=== PATIENT | male | born 1985 | race Caucasian/White ===

== ENCOUNTER 2025-03-01 09:19 | Emergency (ER) | payer OTHER, SELFPAY ==
[2025-03-01 09:21] VITALS: BP 122/28
--- NOTE | 2025-03-01 09:21 | ED.GENMED ---
History of Present Illness
General
Chief Complaint: Abdominal Symptoms
Time Seen by Provider: 03/01/25 09:21
History of Present Illness
History of Present Illness:
FOCUSED PAST MEDICAL HISTORY
- Anxiety, bipolar
REVIEW OF OLD RECORDS
- No old records available for review
Note:
CHIEF COMPLAINT(S)
Concerns about findings from a body scanner during an intake process.
HISTORY OF PRESENT ILLNESS
The patient, a 39-year-old male, was undergoing an intake process which involved a body scan with an x-ray device. During this scan, a void the size of an acorn was reported in his abdomen. The patient denied knowledge of any foreign body in the
rectal area or elsewhere. He mentioned experiencing constipation, attributing it to the use of buprenorphine. The constipation adds difficulty to having a bowel movement, but he felt he could attempt one immediately.
I spoke to corrections officers at bedside
PHYSICAL EXAM
General: Alert, cooperative.
Skin: Warm, dry.
Head: Normocephalic, atraumatic.
Neck: Supple, trachea midline.
Eye, Ears, Nose, and Throat: Oral mucosa moist.
Cardiovascular: Normal peripheral perfusion, no edema.
Respiratory: Respirations are non-labored.
Gastrointestinal: Abdomen nondistended. Soft abdomen
Back: Normal range of motion, normal alignment.
Musculoskeletal: Normal ROM, normal strength.
Neurological: Alert and oriented to person, place, time, and situation, no focal neurological deficit observed.
Psychiatric: Cooperative, appropriate mood & affect.
PLAN
1. Obtain an abdominal x-ray to evaluate the cause of the void reported during the body scan.
2. Encourage the patient to have a bowel movement if possible, which may aid in resolving any potential obstruction shown on the previous scan.
DIFFERENTIAL DIAGNOSIS
The Differential Diagnosis includes, in no particular order and is not limited to:
1. Constipation due to medication (Buprenorphine).
2. Fecal impaction.
3. Intrabdominal foreign body.
4. Rectal mass or neoplasm.
5. Rectal abscess.
6. Diverticular disease.
7. Inguinal hernia.
8. Hemorrhoids.
9. Obstructive bowel syndrome.
10. Spinal misalignment affecting bowel passage.
RADIOLOGY
- X-ray of abdomen obtained
UPDATE
-SUMMARY OF ENCOUNTER
Patient was seen in the emergency department due to concerns raised by a body scanner which indicated a void the size of an acorn in the lower half of the body. An abdominal x-ray was obtained to evaluate for foreign objects, revealing no radiopaque
foreign body. The patient was asymptomatic, and vital signs were stable and unremarkable.
DISPOSITION
Transfer to police custody.
PLAN
No further emergency intervention required following negative radiological findings and stable vital signs.
INDEPENDENT REVIEW OF LABS AND INTERPRETATION OF TESTS
My independent interpretation of the abdominal x-ray shows no radiopaque foreign body present.
MEDICATION RECONCILIATION
None required based on current visit findings.
MEDICAL DECISION MAKING
-Complexity of Data Reviewed: Chronic conditions affecting care include constipation due to medication (Buprenorphine). Differential diagnosis included constipation due to medication, fecal impaction, intrabdominal foreign body, rectal mass or
neoplasm, rectal abscess, diverticular disease, inguinal hernia, hemorrhoids, obstructive bowel syndrome, spinal misalignment affecting bowel passage.
-Data:
Category 1
My independent interpretation of the abdominal x-ray shows no radiopaque foreign body present.
-Risk:
Consideration of Admission/Observation: Escalation of care including admission/observation was considered given the complexity and risk of the patients presenting complaint, exam findings, and/or their underlying comorbidities. However, ultimately I
feel the patient is safe for outpatient management with close follow-up. Reasoning: Work-up reassuring, does not reveal any acute life/organ threatening processes, patients symptoms well controlled upon reevaluation, reexamination is reassuring,
vitals are stable, patient agreeable with discharge, reliable for follow-up.
DIAGNOSIS
No foreign body detected in the abdominal region.
Phy Exam
Physical Exam
Physical Exam:
See HPI
Course
Orders/Labs/Results
Orders:
Orders
03/01/25 10:21
CR Abdomen - 1 View Urgent
Comment:
Reason For Exam: eval for FB; 'body scanner abnormal' at [facility] living
Vital Signs
Initial and Last Documented VS:
Initial Vital Signs
Temp Pulse Resp BP Pulse Ox
36.8 C 70 16 122/28 96
03/01/25 09:21 03/01/25 09:21 03/01/25 09:21 03/01/25 09:21 03/01/25 09:21
Last Documented Vital Signs
Temp Pulse Resp BP Pulse Ox
36.8 C 70 16 122/28 96
03/01/25 09:21 03/01/25 09:21 03/01/25 09:21 03/01/25 09:21 03/01/25 09:21
*Pulse Oximetry
Patient hypoxic: no
*Critical Care Note
Total Time (30-74mins, 75-104mins- exclusive of procedures): Not Applicable
ED Attending Note
-
Portions of this chart may have been created with voice recognition software.� Occasional wrong word or��sound alike� substitutions may have occurred due to the inherent limitations of voice recognition software.
Discharge Plan
Departure
Patient Disposition: Home (Routine Discharge)
Date of Disposition: 03/01/25
Time of Disposition: 12:48
Patient with high blood pressure during this ER visit?: Yes
Discharge Problem:
Encounter for medical assessment
Instructions: BLOOD PRESSURE
Referrals:
[facility] [Family Provider, General]
Activity Restrictions/Additional Instructions:
The x-ray was read by the radiologist as no obvious radiopaque foreign body. Patient is medically clear for police custody and incarceration.
Interventions
Interventions:
*Risk Screen - Suicide Last Done: 03/01/25 09:21
*General Assessment Last Done: 03/01/25 09:21
*Neglect/Abuse Screening Last Done: 03/01/25 09:21
Discharge Date and Time
Print Language: GUYANESE
[2025-03-01 13:00] VITALS: BP 119/85
== END 2025-03-01 13:07 | disposition home or self-care (01) ==
LOC: EMR 09:19
PROVIDERS: EMERGENCY PHYSICIAN Emergency Medicine
DX: Z04.89 Encounter for examination and observation for other specified reasons (principal)
CPT/HCPCS: 99283; 74018